=== PATIENT | female | born 1935 | race Caucasian/White ===

== ENCOUNTER 2017-05-03 12:08 | Emergency (ER) | payer MEDICARE ==
[2017-05-03 13:06] VITALS: BP 151/71; TEMP 98; O2SAT 98
--- NOTE | 2017-05-03 13:32 | ED.PDOC ---
History of Present Illness - General Chief Complaint: Upper Extremity Injury Stated Complaint: right clavicle pain Time Seen by Provider: 05/03/17 13:29 Source: patient Exam Limitations: no limitations Additional Information: SHE FELL YESTERDAY AND INJURED HER LEFT CLAVICLE. NOW C/O PAIN TO THE RIGHT CLAVICULAR AREA AND FEELS THE BONE RUB AGAINST BONE. NO OTHER INJURIES ARE VOICED BY THE PATIENT. - History of Present Illness Occurred: yesterday Pain - Upper Extremity: moderate: Shoulder, right Method of Injury: fell Improving Factors: nothing Worsening Factors: movement Allergies/Adverse Reactions: Allergies Ciprofloxacin [From Cipro] Allergy (Verified 05/03/17 13:07) avalox Allergy (Uncoded 05/03/17 13:07) Home Medications: Ambulatory Orders DULoxetine HCL 05/03/17 Detrol 05/03/17 Synthroid 05/03/17 Tramadol HCl 50 mg PO Q6HRS #20 tab 05/03/17 Review of Systems - Review of Systems Constitutional: States: no symptoms reported EENTM: States: no symptoms reported Respiratory: States: no symptoms reported Cardiology: States: no symptoms reported Gastrointestinal/Abdominal: States: no symptoms reported Genitourinary: States: no symptoms reported Musculoskeletal: States: see HPI, other - RIGHT CLAVICULAR PAIN Skin: States: no symptoms reported Neurological: States: no symptoms reported Endocrine: States: no symptoms reported Hematologic/Lymphatic: States: no symptoms reported Past Medical History (General) - Patient Medical History Hx Stroke: No Hx Congestive Heart Failure: No Hx Diabetes: No - Vaccination History Hx Influenza Vaccination: Yes Hx Pneumococcal Vaccination: Yes - Social History Hx Tobacco Use: Yes Family Medical History - Family History Mother Family History: Unknown Living Status: Unknown Physical Exam - Physical Exam General Appearance: Alert, Anxious, No apparent distress Eyes, Ears, Nose, Throat Exam: PERRL/EOMI Neck: full range of motion, supple, normal inspection Cardiovascular/Respiratory: regular rate, rhythm, normal peripheral pulses, no JVD Abdominal Exam: non-tender Back Exam: normal inspection Elbow/Forearm Exam: normal inspection, non-tender, no evidence of injury Wrist Exam: normal inspection, non-tender, no evidence of injury Hand Exam: normal inspection, non-tender, no evidence of injury Progress - Progress Progress: 05/03/17 13:36 THE X RAY HAS A DISPLACED RIGHT MID CLAVICULAR FRACTURE. Departure - Departure Clinical Impression: Clavicle fracture, shaft Qualifiers: Encounter type: initial encounter Fracture type: closed Fracture alignment: displaced Laterality: right Qualified Code(s): S42.021A - Displaced fracture of shaft of right clavicle, initial encounter for closed fracture Time of Disposition: 13:41 Disposition: Discharge to Home or Self Care Condition: Good Departure Forms: ED Discharge - Pt. Copy, Patient Portal Self Enrollment Instructions: DI for Arm Pain, DI for Clavicle Fracture-Adult Diet: resume usual diet Activity: increase activity as tolerated Prescriptions: Tramadol HCl 50 mg PO Q6HRS #20 tab Home Medications: Ambulatory Orders DULoxetine HCL 05/03/17 Detrol 05/03/17 Synthroid 05/03/17 Tramadol HCl 50 mg PO Q6HRS #20 tab 05/03/17
--- NOTE | 2017-05-03 13:54 | RAD ---
EXAM DESCRIPTION: Clavicle,Right CLINICAL HISTORY: pain and bruising COMPARISON: None FINDINGS: 2 views of the right clavicle. Acute mildly comminuted fracture of the distal third of the right clavicle is present. The distal fracture fragment is displaced by one bone breadth inferiorly. The fracture is mainly spiral with a 1.1 cm butterfly type fragment along the superior margin. No significant overlap is present when considering the spiral nature. The acromioclavicular joint appears intact. The right glenohumeral joint appears intact. Remote surgical changes seen in the lower neck. IMPRESSION: Acute clavicular fracture. Electronically signed by: Santiago Taylor MD 05/03/2017 1:53 PM [facility]
== END 2017-05-03 13:50 | disposition home or self-care (01) ==
LOC: ER 12:08
DX: S42.021A Displaced fracture of shaft of right clavicle, initial encounter for closed fracture (principal); W19.XXXA Unspecified fall, initial encounter; Y92.9 Unspecified place or not applicable